=== PATIENT | male | born 1935 | race Caucasian/White ===

== ENCOUNTER 2017-03-31 11:28 | Observation (INO) | payer MEDICARE ==
[~2017-03-31] VITALS: Ht 167.6 cm; Wt 67.0 kg
[~2017-03-31 11:28] MED LIST: AMLO2.5T PO; ASPI81CH CHEW; FISHCAP4 PO; LEVO75TA3 PO; LUMI0.01 EACH EYE; ROSU5 PO; SYSTSOL EACH EYE; TRUS2SOL EACH EYE
[2017-03-31] MEDS ORDERED: METRONIDAZOLE 500 MG/100 ML ISONTONIC SOLN IV ONE (12:00)
[2017-03-31] MEDS ORDERED: INSULIN HUMAN REGULAR 1,000 UNITS/10 ML VIAL SQ PRN (12:00)
[2017-03-31] MEDS ORDERED: METOPROLOL TARTRATE 25 MG TAB PO PRN (12:00)
[2017-03-31] MEDS ORDERED: POVIDONE IODINE 5% (ANTISEPSIS KIT) 4 APPLICATIONS EACH NARE PRN (12:00)
[2017-03-31] MEDS ORDERED: CHLORHEXIDINE GLUCONATE 2 % 1 PACK (2 CLOTHS) TOPICAL PRN (12:00)
[2017-03-31] MEDS ORDERED: LACTATED RINGER'S 1000 ML IV PRN (12:00)
[2017-03-31] MEDS ORDERED: ceFAZolin 2 GM PREMIX 50 ML IV SCH (12:00)
[2017-03-31] MEDS ORDERED: SODIUM CHLORID 0.9% 500 ML IV PRN (12:00)
[2017-03-31] MEDS ORDERED: LATA0.002 EACH EYE (12:17)
[2017-03-31 12:20] VITALS: BP 105/55; PULSE 50; RESP 16; TEMP 97.8; O2SAT 99
[2017-03-31] MEDS ORDERED: BUPIVACAINE/EPINEPHRINE 0.25% PF 10 ML VIAL ONE (12:25)
[2017-03-31] MEDS ORDERED: PROPOFOL 200 MG/20 ML AMP IV ONE (12:49)
[2017-03-31] MEDS ORDERED: ePHEDrine/NS 25 MG/5 ML SYR IV ONE (12:50)
[2017-03-31] MEDS ORDERED: NEOSTIGMINE 3 MG/3 ML SYR IV ONE (12:50)
[2017-03-31] MEDS ORDERED: ONDANSETRON HCL 4 MG/2 ML VIAL IV PUSH ONE (12:50)
[2017-03-31] MEDS ORDERED: DICLOFENAC SODIUM 37.5 MG/ML VIAL IV PUSH ONE (14:50)
[2017-03-31] MEDS ORDERED: diphenhydrAMINE HCL 25 MG CAP PO PRN (15:00)
[2017-03-31] MEDS ORDERED: NALOXONE HCL 0.4 MG/ML AMP IV PRN (15:00)
[2017-03-31] MEDS ORDERED: ONDANSETRON HCL 4 MG/2 ML VIAL IV PRN (15:00)
[2017-03-31] MEDS ORDERED: SODIUM CHLORIDE 0.9% FLUSH 5 ML FLUSH IVF PRN (15:00)
[2017-03-31] MEDS ORDERED: ACETAMINOPHEN/HYDROcodone 325 MG/5 MG TAB PO PRN (15:00)
[2017-03-31] MEDS ORDERED: HYDROmorphone HCL PF 1 MG/ML VIAL IV PRN (15:00)
[2017-03-31] MEDS ORDERED: NON-FORMULARY DRUG (Polyethylene Glycol-Propylene Glycol Opth Drp (Systane Opth Drops) 0 D EACH EYE PRN (15:00)
[2017-03-31] MEDS ORDERED: Post-op Orders (for Pharmacy) MISC XX ONE (15:00)
[2017-03-31] MEDS ORDERED: MORPHINE SULFATE 4 MG/ML INJ IV PUSH PRN (15:00)
--- NOTE | 2017-03-31 15:02 | HHI.PR ---
Immediate Post Op Note Procedure Date: Mar 31, 2017 Pre Op Diagnosis: acute cholecystitis Post Op Diagnosis: same Surgeon: Simon Farooq Conditioning Room Worker(s): cedric lawton Procedure: lap sujata Complications: none Specimen(s) removed: gallbladder Estimated blood loss: minimal Anesthesia: General Drains: None IVF Patient to: PACU Patient Condition: Good Simon Farooq MD Mar 31, 2017 15:02
[2017-03-31] MEDS ORDERED: ARTIFICIAL TEARS OPTH SOLN 15 ML BTL EACH EYE PRN ×2 (15:15→15:22)
[2017-03-31] MEDS ORDERED: PILL SPLITTER OTHER PRN (15:15)
[2017-03-31] MEDS ORDERED: fentaNYL CITRATE 250 MCG/5 ML AMP ONE (15:15)
[2017-03-31] MEDS: SODIUM CHLOR 0.9% 1000 ML INJ 1,000 ML IV SCH (15:25)
[2017-03-31] MEDS ORDERED: *morphine SULFATE 8 MG/ML PERIprocedure ONLY ONE ×2 (15:41→15:59)
[2017-03-31 16:00] VITALS: BP 133/61; PULSE 57; RESP 17; TEMP 96.5; O2SAT 96
[2017-03-31] MEDS ORDERED: DO NOT ADM ANY ANTICOAGULANT DRUGS PRN (16:00)
[2017-03-31] MEDS: ACETAMINOPHEN/HYDROcodone 325 MG/5 MG TAB PO PRN (17:31)
[2017-03-31] MEDS: DORZOLAMIDE 2% OPTH SOLN 200 DROP/10 ML BTLO EACH EYE SCH (18:25)
[2017-03-31] MEDS: SODIUM CHLORIDE 0.9% FLUSH 5 ML FLUSH IVF SCH (19:54)
[2017-03-31 20:00] VITALS: BP 127/63; PULSE 57; RESP 18; TEMP 96.2; O2SAT 96
[2017-03-31] MEDS ORDERED: NON-FORMULARY DRUG (Bimatoprost Opth Drops (Lumigan Opth Drops) 1 DROP) EACH EYE SCH (21:00)
[2017-03-31] MEDS ORDERED: NON-FORMULARY DRUG (Rosuvastatin (Crestor) 5 MG) PO SCH (21:00)
[2017-03-31] MEDS ORDERED: amLODIPine BESYLATE 5 MG TAB PO SCH (21:00)
[2017-03-31] MEDS ORDERED: ATORVASTATIN 10 MG TAB PO SCH (21:00)
[2017-03-31] MEDS ORDERED: LATANOPROST 0.005% OPHT SOLN 2.5 ML BTL EACH EYE SCH (21:00)
[2017-04-01] VITALS: BP 151/70; PULSE 62; RESP 18; TEMP 96.2; O2SAT 96
[2017-04-01] MEDS: ACETAMINOPHEN/HYDROcodone 325 MG/5 MG TAB PO PRN (00:55)
[2017-04-01] MEDS: SODIUM CHLOR 0.9% 1000 ML INJ 1,000 ML IV SCH (00:59)
[2017-04-01 04:00] VITALS: BP 158/69; PULSE 67; RESP 18; TEMP 96.1; O2SAT 97
[2017-04-01] MEDS ORDERED: LEVOTHYROXINE SODIUM 75 MCG TAB PO SCH (06:00)
[2017-04-01 08:00] VITALS: BP 135/60; PULSE 62; RESP 20; TEMP 95.6; O2SAT 97
[2017-04-01] MEDS ORDERED: NON-FORMULARY DRUG (Fish Oil-Cholecalciferol (Fish Oil + D3) 1 CAP) PO SCH (09:00)
[2017-04-01] MEDS ORDERED: ASPIRIN 81 MG CHEW TAB CHEW SCH (09:00)
[2017-04-01] MEDS: SODIUM CHLORIDE 0.9% FLUSH 5 ML FLUSH IVF SCH (09:00)
[2017-04-01] MEDS: DORZOLAMIDE 2% OPTH SOLN 200 DROP/10 ML BTLO EACH EYE SCH (09:22)
--- NOTE | 2017-04-01 11:12 | MP ---
cc: RE GUZMÁN M.D. DATE OF SURGERY: 03/31/2017 PREOPERATIVE DIAGNOSIS Acute cholecystitis. POSTOPERATIVE DIAGNOSIS Acute cholecystitis. PROCEDURE PERFORMED Laparoscopic cholecystectomy. SURGEON Re Guzmán DIRECTOR ELECTRICAL ENGINEERING Jared Zenaida, MS III ANESTHESIA General endotracheal. COMPLICATIONS None. INDICATION FOR PROCEDURE Mr. Iverson is a very pleasant 82-year-old gentleman who has had about a two-week history of significant right upper quadrant abdominal pain. He went to see Dr. Raulito Griggs who sent him for a CT scan of the abdomen and pelvis which demonstrated acute cholecystitis. He was referred for general surgical evaluation. The patient was seen and evaluated in the office and offered a cholecystectomy. The risks and benefits of open and laparoscopic cholecystectomy was discussed with him and he was agreeable. DETAILS OF PROCEDURE The patient was identified, brought to the operating room and placed supine on the operating table. After adequate general endotracheal anesthesia was achieved the abdomen was prepped and draped in standard surgical fashion. The infraumbilical space was anesthetized with 0.25% Marcaine. An infraumbilical incision was made. Dissection was carried down through the subcutaneous tissue to the midline fascia. The midline fascia was then incised sharply. A finger was then placed in the peritoneal cavity without difficulty. A blunt balloon trocar was inserted and the abdomen was insufflated to 15 mmHg using CO2 gas. Next, three 5 mm trocars were placed across the right upper quadrant after anesthetizing the skin and subcutaneous tissue with 0.25% Marcaine. The gallbladder was identified and noted to be markedly distended and enlarged. The gallbladder was retracted cephalad. The patient had a very large right lobe of the liver requiring a third port which we had to place in order to elevate to see the neck of the gallbladder. Once we did this we were able to clearly see the neck of the gallbladder. The patient had a fairly large cystic duct going right down into the common bile duct. It was easily seen. The patient also was noted to have a large right hepatic artery crossing just behind the cystic duct with a cystic duct branch identified. These were all carefully dissected out and confirmed in two planes. The cystic duct was quite large. We went ahead and put two clips on it proximally and one distally and then cut it. The patient was noted to have a stone lodged in the neck of the gallbladder. We then clipped the cystic artery twice proximally, once distally and divided it. The gallbladder was then dissected back a fair distance. Because the cystic artery was quite large and the clips barely got across it, I elected to place an Endoloop on the cystic duct as well. The cystic duct was encircled with a 2-0 PDS Endoloop and ligated which completely sealed it within the clips. There was never any leakage of bile during the procedure. Once we did this the gallbladder was dissected out of the hepatic fossa using electrocautery Bovie. The gallbladder was placed into an Endopouch bag. The umbilical fascial incision had to be enlarged due to the large size of the gallbladder. This was done with sharp dissection. The gallbladder was then excised and removed. The gallbladder was noted to be very edematous and thickened and contained multiple stones. The clips were in place on the cystic duct stump and there was no evidence of leakage of bile. The gallbladder was sent to pathology for analysis. Next, the abdominal cavity was re-visualized. Several small bleeding points on the liver bed were controlled with electrocautery Bovie. Once we did this no further bleeding was noted. The abdominal cavity was rinsed out and effluent was noted to be clear. Clips were re-inspected on the cystic artery and cystic duct stump and there was no evidence of leakage of bile and no bleeding. Omentum was then placed on the operative site. All ports were removed under direct vision. The umbilical fascia was then closed with interrupted 0 Vicryl. The skin was closed with 4-0 Vicryl. The patient tolerated the procedure well. Estimated blood loss was minimal. The patient was awakened, extubated and brought to Recovery in stable condition. MD ELZA Cid/ELIANA /3:03 PM /10:57 AM
[2017-04-01] MEDS ORDERED: NORC5TAB PO (11:35)
[2017-04-01 12:00] VITALS: BP 128/56; PULSE 66; RESP 20; TEMP 96; O2SAT 98
--- NOTE | 2017-04-01 12:30 | HHI.DS ---
Discharge Summary Admission Date Mar 31, 2017 at 14:56 Discharge Date: Apr 01, 2017 Admitting Diagnosis Brief History 82 year old POD1 lap sujata PE at Discharge Ambulating in room Cardio: RRR Resp: CTAB Abd: soft; lap sites c/d/i; tender at incisions Hospital Course 82 year old male POD1 lap sujata. He is able to tolerate a regular diet. His pain was controlled using oral pain medications. He is being DCed home in stable in condition. He will follow up in the office in about 10-14 days. Pt Condition on Discharge: Good Discharge Disposition: Discharge Home Discharge Instructions DIET: Follow Instructions for: As Tolerated, No Restrictions Activities you can perform: See Additionl Instruction Other Activity Instructions: Okay to shower; pat incisions dry Avoid baths, swimming pools and beach until follow up visit Avoid heavy pulling pushing or lifting Bee Meléndez Apr 01, 2017 12:30
== END 2017-04-01 13:56 | disposition home or self-care (01) ==
LOC: HSDC 11:28 → HSDI 14:56 → N07B 16:56
PROVIDERS: ADMIT Surgery Trauma Surgery; ATTEND Surgery Trauma Surgery
DX: K80.12 Calculus of gallbladder with acute and chronic cholecystitis without obstruction (principal); I10 Essential (primary) hypertension; E78.5 Hyperlipidemia, unspecified; E03.9 Hypothyroidism, unspecified; H40.9 Unspecified glaucoma; J44.9 Chronic obstructive pulmonary disease, unspecified; Z87.891 Personal history of nicotine dependence; Z79.82 Long term (current) use of aspirin; Z85.46 Personal history of malignant neoplasm of prostate; Z88.8 Allergy status to other drugs, medicaments and biological substances; Z95.5 Presence of coronary angioplasty implant and graft; Z92.3 Personal history of irradiation; Z86.79 Personal history of other diseases of the circulatory system
CPT/HCPCS: 47562; 88304; 94150; G0378; J0690; J1130; J2270; J2405; J2710; J3010; J7030; J7120

== ENCOUNTER 2018-05-13 05:43 | Observation (INO) ==
[2018-05-13 05:56] VITALS: TEMP 97.6
[2018-05-13] MEDS ORDERED: Sod Chloride 0.9% Inj 1,000 ML IV.CONT SCH (06:00)
--- NOTE | 2018-05-13 06:00 | ED ---
HPI General Chief Complaint: Chest Pain Stated Complaint: chest pain/left side/dizzy Time Seen by Provider: 05/13/18 05:55 History of Present Illness HPI narrative: 83-year-old male with 2 hours of chest pain dizziness headache and referred pain to the left shoulder. Patient has prior history of CAD with multiple stents VA hypertension and dyslipidemia. No history of diabetes or tobaccoism. Patient rates pain as moderate to severe. Patient did take 181 mg aspirin prior to arrival to the. Patient takes isosorbide and has access to sublingual nitroglycerin but did not take either of these medications prior to arrival to the emergency department. Patient denies any mid scapular pain shortness of breath sweats or abdominal pain. Patient does except have some mild nausea. Patient is unable to identify exacerbating or alleviating factors. Patient's manager operational is Dr. Moss; last visit 2 months ago; last stress test 1 year ago. Complete Quality Measures for STEMI Alert Patients Related Data Home Medications Medication Instructions Recorded Confirmed amlodipine 2.5 mg PO DAILY 05/13/18 05/13/18 aspirin [Aspir-81] 81 mg PO DAILY 05/13/18 05/13/18 brimonidine 1 drp OPHTHALMIC (EYE) TID 05/13/18 05/13/18 dorzolamide-timolol 1 drp OPHTHALMIC (EYE) BID 05/13/18 05/13/18 isosorbide mononitrate 120 mg PO DAILY 05/13/18 05/13/18 latanoprost 1 drp OPHTHALMIC (EYE) QPM 05/13/18 05/13/18 levothyroxine 75 mcg PO DAILY 05/13/18 05/13/18 omega-3 fatty acids-fish oil [Fish 500 mg PO DAILY 05/13/18 05/13/18 Oil Extra Strength] peg 400-propylene glycol [Systane 1 drp OPHTHALMIC (EYE) BID 05/13/18 05/13/18 Ultra] rosuvastatin [Crestor] 5 mg PO DAILY 05/13/18 05/13/18 Allergies Allergy/AdvReac Type Severity Reaction Status Date / Time gabapentin AdvReac Unknown Dizziness Verified 05/13/18 05:50 Review of Systems Except as stated in HPI: all other systems reviewed are negative PMFSH History History Provided By: Patient, Friend and Medical Record Medical History Medical History History of high cholesterol (Acute) Hx of coronary artery disease (Acute) Hx of essential hypertension (Acute) Hx of thyroid disease (Acute) Surgical History Surgical History Hx of cholecystectomy (Acute) Hx of hernia repair (Acute) Hx of tonsillectomy (Acute) Social History Social History Substance History: No History of Abuse Second Hand Smoke Exposure: No Smoking Status: Never smoker How Often Do You Have a Drink Containing Alcohol: Monthly or less Recent Travel in [facility] within the Last 8 Weeks: No Recent Out of Country Travel within the Last 8 Weeks: No Exam Narrative Exam Narrative: GENERAL: Well-nourished, well-developed patient. SKIN: Focused skin assessment warm/dry. HEAD: Normocephalic. EYES: No scleral icterus. No injection or drainage. NECK: Supple, trachea midline. No JVD or lymphadenopathy. CARDIOVASCULAR: Regular rate and rhythm without murmurs, gallops, or rubs. Bilateral radial and bilateral dorsalis pedis pulses 2+ to palpation. RESPIRATORY: Breath sounds equal bilaterally. No accessory muscle use. GASTROINTESTINAL: Abdomen soft, non-tender, nondistended. MUSCULOSKELETAL: No cyanosis, or edema. BACK: Nontender without obvious deformity. No CVA tenderness. Course Initial Documented Vital Signs Temperature 97.6 F 05/13/18 05:50 Pulse Rate 66 05/13/18 05:50 Respiratory Rate 18 05/13/18 05:50 Blood Pressure 193/74 H 05/13/18 05:50 Pulse Oximetry 99 05/13/18 05:50 Last Documented Vital Signs Temperature 97.6 F 05/13/18 06:00 Pulse Rate 52 L 05/13/18 07:16 Respiratory Rate 18 05/13/18 07:16 Blood Pressure 112/55 L 05/13/18 07:16 Pulse Oximetry 97 05/13/18 07:16 Medical Decision Making MDM Narrative Medical decision making narrative: 83-year-old male presents with chest pain with known history of CAD and hypertension EKG is sinus rhythm with no acute ST elevation or injury pattern or ectopy noted; patient administered aspirin 162 mg to be taken by mouth chewed sublingual nitroglycerin 0.4 mg to be administered every 5 minutes as needed for chest pain and to hold for blood pressure less than or equal to 100/60 mmHg; patient administered Zofran 4 mg IV. Will also obtain CT brain noncontrast discussed with [facility] for [facility] admission; discussed with Dr Weeks Differential Diagnosis Differential Diagnosis: Chest pain, ACS, VA, dissection, TIA, CVA, uncontrolled hypertension Medical Records Medical records reviewed: Yes I reviewed the patient's medical records. Lab Data Result diagrams: 05/13/18 05:50 05/13/18 05:50 Lab Results 05/13/18 05/13/18 05/13/18 Range/Units 05:50 05:50 05:50 CBC w Diff Auto diff final WBC 6.1 (4.0-11.0) th/mm3 RBC 4.33 L (4.50-5.90) mil/mm3 Hgb 14.1 (13.0-17.0) gm/dL Hct 42.6 (39.0-51.0) % MCV 98.4 (80.0-100.0) fL MCH 32.6 (27.0-34.0) pg MCHC 33.1 (32.0-36.0) % RDW 12.6 (11.6-17.2) % Plt Count 187 (150-450) th/mm3 MPV 9.0 (7.0-11.0) fL Neut % (Auto) 52.3 (16.0-70.0) % Lymph % (Auto) 34.4 (9.0-44.0) % Smyth % (Auto) 8.2 H (0.0-8.0) % Eos % (Auto) 3.9 (0.0-4.0) % Baso % (Auto) 1.2 (0.0-2.0) % Neut # (Auto) 3.2 (1.8-7.7) th/mm3 Lymph # (Auto) 2.1 (1.0-4.8) th/mm3 Smyth # (Auto) 0.5 (0.0-0.9) th/mm3 Eos # (Auto) 0.2 (0.0-0.4) th/mm3 Baso # (Auto) 0.1 (0.0-0.2) th/mm3 WBC Differential . Differential Comment . PT 10.5 (9.8-11.6) sec INR 1.0 Ratio APTT 24.5 (24.3-30.1) sec Sodium 136 (136-145) meq/L Potassium 4.3 (3.5-5.1) meq/L Chloride 105 (98-107) meq/L Carbon Dioxide 22.3 (21.0-32.0) meq/L Anion Gap 9 (5-15) meq/L BUN 22 H (7-18) mg/dL Creatinine 0.97 (0.60-1.30) mg/dL Estimated GFR 74 L (>89) mL/min POC Glucose (68-110) mg/dl Random Glucose 144 H (74-106) mg/dL Calcium 9.1 (8.5-10.1) mg/dL Magnesium (1.5-2.5) mg/dL Total Creatine Kinase 61 (39-308) U/L Troponin I Less than 0.02 L (0.02-0.05) ng/mL B-Natriuretic Peptide (0-100) pg/mL 05/13/18 05/13/18 05/13/18 Range/Units 05:50 05:50 06:11 CBC w Diff WBC (4.0-11.0) th/mm3 RBC (4.50-5.90) mil/mm3 Hgb (13.0-17.0) gm/dL Hct (39.0-51.0) % MCV (80.0-100.0) fL MCH (27.0-34.0) pg MCHC (32.0-36.0) % RDW (11.6-17.2) % Plt Count (150-450) th/mm3 MPV (7.0-11.0) fL Neut % (Auto) (16.0-70.0) % Lymph % (Auto) (9.0-44.0) % Smyth % (Auto) (0.0-8.0) % Eos % (Auto) (0.0-4.0) % Baso % (Auto) (0.0-2.0) % Neut # (Auto) (1.8-7.7) th/mm3 Lymph # (Auto) (1.0-4.8) th/mm3 Smyth # (Auto) (0.0-0.9) th/mm3 Eos # (Auto) (0.0-0.4) th/mm3 Baso # (Auto) (0.0-0.2) th/mm3 WBC Differential Differential Comment PT (9.8-11.6) sec INR Ratio APTT (24.3-30.1) sec Sodium (136-145) meq/L Potassium (3.5-5.1) meq/L Chloride (98-107) meq/L Carbon Dioxide (21.0-32.0) meq/L Anion Gap (5-15) meq/L BUN (7-18) mg/dL Creatinine (0.60-1.30) mg/dL Estimated GFR (>89) mL/min POC Glucose 123 H (68-110) mg/dl Random Glucose (74-106) mg/dL Calcium (8.5-10.1) mg/dL Magnesium 2.2 (1.5-2.5) mg/dL Total Creatine Kinase (39-308) U/L Troponin I (0.02-0.05) ng/mL B-Natriuretic Peptide 100 (0-100) pg/mL Imaging Data Radiologist's impression: Chest X-Ray 05/13/18 05:55 CONCLUSION: Mild cardiomegaly with no acute cardiopulmonary disease. ECG Data EKG Prior to Arrival: No Attestation: I personally reviewed and interpreted this ECG as follows: Prior ECG tracings: available for review Interpretation: EKG: Normal sinus rhythm rate [address] elevation injury pattern or ectopy noted Discharge Plan Discharge Disposition Patient Disposition: 30 Still Patient Discharge Condition Condition: Stable Discharge Details Diagnosis: Chest pain Physicians Team ED Provider: Lindsey Friedman Primary Care Provider: Bryan Blue Rxs /Orders / Referrals /Forms Prescriptions: No Action isosorbide mononitrate 120 mg Tablet Extended Release 24 Hr 120 mg PO DAILY RF: 0 levothyroxine 75 mcg Tablet 75 mcg PO DAILY RF: 0 rosuvastatin [Crestor] 5 mg Tablet 5 mg PO DAILY RF: 0 omega-3 fatty acids-fish oil [Fish Oil Extra Strength] 435-880 mg Capsule 500 mg PO DAILY RF: 0 latanoprost 0.005 % Drops 1 drp OPHTHALMIC (EYE) QPM RF: 0 aspirin [Aspir-81] 81 mg Tablet,Delayed Release (Dr/Ec) 81 mg PO DAILY RF: 0 dorzolamide-timolol 22.3-6.8 mg/mL Drops 1 drp OPHTHALMIC (EYE) BID RF: 0 brimonidine 0.15 % Drops 1 drp OPHTHALMIC (EYE) TID RF: 0 peg 400-propylene glycol [Systane Ultra] 0.4-0.3 % Drops 1 drp OPHTHALMIC (EYE) BID RF: 0 amlodipine 2.5 mg Tablet 2.5 mg PO DAILY RF: 0 Discharge Instructions Patient Printed Instructions: Chest Pain (ED) Status ED Status: With Doctor
[2018-05-13 06:09] LABS: Baso # (Auto) 0.1 th/mm3 (0.0-0.2); Baso % (Auto) 1.2 % (0.0-2.0); Eos # (Auto) 0.2 th/mm3 (0.0-0.4); Eos % (Auto) 3.9 % (0.0-4.0); Hematocrit 42.6 % (39.0-51.0); Hemoglobin 14.1 gm/dL (13.0-17.0); Lymph # (Auto) 2.1 th/mm3 (1.0-4.8); Lymph % (Auto) 34.4 % (9.0-44.0); Mean Corpuscular HGB Conc 33.1 % (32.0-36.0); Mean Corpuscular Hemoglobin 32.6 pg (27.0-34.0); Mean Corpuscular Volume 98.4 fL (80.0-100.0); Mono # (Auto) 0.5 th/mm3 (0.0-0.9); Mono % (Auto) 8.2 % (0.0-8.0); Neut # (Auto) 3.2 th/mm3 (1.8-7.7); Neut % (Auto) 52.3 % (16.0-70.0); Platelet Count 187 th/mm3 (150-450); Red Blood Count 4.33 mil/mm3 (4.50-5.90); Red Cell Distribution Width 12.6 % (11.6-17.2); White Blood Count 6.1 th/mm3 (4.0-11.0)
[2018-05-13 06:20] LABS: Chloride 105 meq/L (98-107); Potassium 4.3 meq/L (3.5-5.1); Sodium 136 meq/L (136-145)
[2018-05-13 06:23] LABS: Anion Gap 9 meq/L (5-15); Calcium 9.1 mg/dL (8.5-10.1); Carbon Dioxide 22.3 meq/L (21.0-32.0); Glucose,Random 144 mg/dL (74-106)
[2018-05-13 06:24] LABS: Blood Urea Nitrogen 22 mg/dL (7-18)
[2018-05-13 06:27] LABS: Glomerular Filtration Rate 74 mL/min (>89)
--- NOTE | 2018-05-13 06:29 | XR ---
EXAM DATE: 05/13/2018 6:24 AM EDT AGE/SEX: 83 years / Male INDICATIONS: Complains of left sided chest pain and dizziness. CLINICAL DATA: This is the patient's initial encounter. Patient reports that signs and symptoms have been present for 2 days and indicates a pain score of 4/10. MEDICAL/SURGICAL HISTORY: None. None. COMPARISON: [facility], CHEST SINGLE AP, 02/21/2013. . FINDINGS: A single AP view of the chest demonstrates the lungs to be symmetrically aerated without evidence of mass, infiltrate or effusion. The heart size remains mildly prominent with no perihilar edema. Ather osclerotic changes are again noted in the aorta. Osseous structures are intact. CONCLUSION: Mild cardiomegaly with no acute cardiopulmonary disease. Electronically signed by: Josesito Zarate MD 05/13/2018 6:28 AM EDT
[2018-05-13 06:49] LABS: Activated Partial Thrombo Time 24.5 sec (24.3-30.1); Prothrombin Time 10.5 sec (9.8-11.6)
[2018-05-13 07:03] LABS: Creatine Kinase 61 U/L (39-308)
[2018-05-13] MEDS ORDERED: Sodium Chlor 0.9% Inj 300 ML IV.SIG ONE (07:07)
[2018-05-13] MEDS ORDERED: Acetaminophen 325 MG Tablet PO ONE (07:08)
[2018-05-13] MEDS ORDERED: Aspirin 325 MG Tablet PO SCH (09:00)
[2018-05-13 09:28] LABS: Creatine Kinase 51 U/L (39-308)
[2018-05-13 10:12] VITALS: BP 135/65; PULSE 54; RESP 18; O2SAT 99
--- NOTE | 2018-05-13 10:52 | P.HP ---
History of Present Illness Primary Care Physician: Bryan Blue MD Chief Complaint: Chest pain History of Present Illness: 83-year-old with known history of hypertension, hyperlipidemia, coronary disease , hypothyroidism, history of prostate cancer, recurrent headache who presented to the hospital for evaluation of chest pain. Patient states that his normal state of health until he went to go to bed last evening when he had some mild dizziness. When he woke up this morning he was having left-sided chest pain that radiated to his left arm which he described as 7/10 on a pain scale. Because of that reason he came to emergency department for evaluation. Patient states that the pain never completely resolved it is now down to a 3/10 on a pain scale. It is reproducible on palpation. Patient has some nausea but no vomiting. Denies any shortness of breath, dyspnea, diaphoresis. Patient does follow with Dr. Encinas, I contacted patient's health companion who indicated that the patient has chronic recurrent chest discomfort which is usually noncardiac. He has done extensive workout without any acute etiology to support his chest pain. He recommended that if the patient ruled out with at least 2 sets of cardiac enzymes the patient can be discharged home and follow-up in his office on Thursday. I notified patient of my discussion with the health companion in he was happy to hear that, however now he states that he is too dizzy to ambulate and does not want to leave until we get that evaluated. Patient states that it is a dizziness that disrupts his equilibrium. There is no nausea or vomiting associated with it. He has had this type of symptom before and usually associated with his chronic intermittent cephalgia. There is no indication of any paresthesia, paralysis, unilateral weakness, dysphagia, slurred speech - Diagnosis (1) Dizziness (2) Chest pain PMF - History History Provided By: Patient, Friend, Medical Record - Medical History Medical History: Medical History (Last Updated 05/13/18 @ 10:45 by MICHAEL Sow) Anxiety Cephalgia History of high cholesterol History of prostate cancer Hx of coronary artery disease Hx of essential hypertension Hx of thyroid disease - Surgical History Surgical History: Surgical History (Last Updated 05/13/18 @ 10:45 by MICHAEL Sow) History of heart artery stent History of mandibular surgery Hx of cardiac catheterization Hx of cholecystectomy Hx of hernia repair Hx of tonsillectomy - Family History Family History: Family History (Last Updated 05/13/18 @ 10:46 by MICHAEL Sow) Other Family history of diabetes mellitus Family history of heart disease - Tobacco History Second Hand Smoke Exposure: No Tobacco Use In Past 30 Days: No Smoking Status: Never smoker - Alcohol History How Often Do You Have a Drink Containing Alcohol: Monthly or less - Substance Use History Substance History: No History of Abuse - Travel History Recent Travel in the [place] Within the Last 8 Weeks: No Recent Travel Out of the Country Within the Last 8 Weeks: No - Immunization History Tetanus Immunization: Unsure Hx Influenza Vaccine This Season: No Medications and Allergies Active Medications: Active Medications Aspirin (Aspirin) 325 mg PO DAILY [facility] Last Admin: 05/13/18 08:55 Dose: 325 mg Sodium Chloride (Ns Inj) 1,000 mls @ 84 mls/hr IV.CONT .[id number] [facility] Last Admin: 05/13/18 06:12 Dose: 84 mls/hr Nitroglycerin (Nitrostat Sl) 0.4 mg SL Q5M PRN PRN Reason: CHEST PAIN Sodium Chloride (Ns Flush) 2 ml IV.FLUSH UNSCH PRN PRN Reason: FLUSH AFTER USING IV ACCESS Sodium Chloride (Ns Flush) 2 ml IV.FLUSH PRN PRN PRN Reason: FLUSH AFTER USING IV ACCESS Sodium Chloride (Ns Flush) 2 ml IV.FLUSH BID [facility] Last Admin: 05/13/18 08:55 Dose: 2 ml Allergies Allergy/AdvReac Type Severity Reaction Status Date / Time gabapentin AdvReac Unknown Dizziness Verified 05/13/18 05:50 Home Medications Medication Instructions Recorded Confirmed Type amlodipine 2.5 mg PO DAILY 05/13/18 05/13/18 History aspirin [Aspir-81] 81 mg PO DAILY 05/13/18 05/13/18 History brimonidine 1 drp OPHTHALMIC (EYE) TID 05/13/18 05/13/18 History dorzolamide-timolol 1 drp OPHTHALMIC (EYE) BID 05/13/18 05/13/18 History isosorbide mononitrate 120 mg PO DAILY 05/13/18 05/13/18 History latanoprost 1 drp OPHTHALMIC (EYE) QPM 05/13/18 05/13/18 History levothyroxine 75 mcg PO DAILY 05/13/18 05/13/18 History omega-3 fatty acids-fish oil [Fish 500 mg PO DAILY 05/13/18 05/13/18 History Oil Extra Strength] peg 400-propylene glycol [Systane 1 drp OPHTHALMIC (EYE) BID 05/13/18 05/13/18 History Ultra] rosuvastatin [Crestor] 5 mg PO DAILY 05/13/18 05/13/18 History Exam Vital signs: Vital Signs 05/13/18 05:50 05/13/18 06:00 05/13/18 06:04 Temperature 97.6 F 97.6 F Pulse Rate 66 66 Respiratory Rate 18 18 Blood Pressure 193/74 H 193/74 H Blood Pressure [Left Arm] 172/67 H Blood Pressure [Right Arm] 193/74 H Pulse Oximetry 99 99 05/13/18 06:31 05/13/18 06:47 05/13/18 07:10 Temperature Pulse Rate 60 56 L Respiratory Rate 18 18 16 Blood Pressure 143/67 H 141/66 H Blood Pressure [Left Arm] Blood Pressure [Right Arm] Pulse Oximetry 98 97 05/13/18 07:16 05/13/18 08:52 05/13/18 08:53 Temperature Pulse Rate 52 L 69 69 Respiratory Rate 18 17 Blood Pressure 112/55 L 139/57 L Blood Pressure [Left Arm] Blood Pressure [Right Arm] Pulse Oximetry 97 100 05/13/18 09:25 Temperature Pulse Rate 54 L Respiratory Rate 18 Blood Pressure 135/65 Blood Pressure [Left Arm] Blood Pressure [Right Arm] Pulse Oximetry 99 Intake & Output 05/12/18 05/13/18 05/13/18 18:59 06:59 18:59 Intake Total 300 / 300 Output Total 1650 / 1650 Balance -1350 / -1350 Weight 68.7 kg Intake: IV 300 / 300 NS Inj 300 ML @ Wide Open IV. 300 / 300 SIG BOLUS ONE Rx#:[id number] Output: Urine 1650 / 1650 Narrative: GENERAL: Well-developed, well-nourished, in no acute distress. alert and orientated HEENT: Head is normocephalic without any lesions or masses noted. Facial features are symmetric. Eyes: Pupils equal round reactive to light. Extraocular muscles are intact. Conjunctivae were clear. Oropharyngeal: Pharynx without any erythema edema. Tongue is midline without deviation. Buccal mucosa is moist without any masses or lesions NECK: Supple without any masses. Trachea midline no deviation. No JVD, no bruits are appreciated CARDIAC: Regular rhythm, regular rate. S1/S2 are heard. No murmurs gallops or rubs. LUNGS: Clear to auscultation bilaterally. No wheeze, rhonchi or rales. No use of accessory muscles on inspiration or expiration. ABDOMEN: Soft, nontender. Nondistended. Bowel sounds heard in all 4 quadrants. No organomegaly or masses. Negative rebound, negative guarding EXTREMITIES: No edema, pulses are equal bilaterally. No cyanosis or clubbing NEUROLOGY: Mood and affect appear appropriate. Cranial nerves II through XII grossly intact. Muscle strength 5/5 in upper and lower extremities bilaterally. Deep tendon reflexes are 2+ in upper and lower extremities bilaterally. Results - Labs CBC & Chem 7: 05/13/18 05:50 05/13/18 05:50 Labs: Laboratory Results - last 24 hr 05/13/18 05/13/18 05/13/18 05:50 05:50 05:50 CBC w Diff Auto diff final WBC 6.1 RBC 4.33 L Hgb 14.1 Hct 42.6 MCV 98.4 MCH 32.6 MCHC 33.1 RDW 12.6 Plt Count 187 MPV 9.0 Neut % (Auto) 52.3 Lymph % (Auto) 34.4 Dickens % (Auto) 8.2 H Eos % (Auto) 3.9 Baso % (Auto) 1.2 Neut # (Auto) 3.2 Lymph # (Auto) 2.1 Dickens # (Auto) 0.5 Eos # (Auto) 0.2 Baso # (Auto) 0.1 WBC Differential . Differential Comment . PT 10.5 INR 1.0 APTT 24.5 Sodium 136 Potassium 4.3 Chloride 105 Carbon Dioxide 22.3 Anion Gap 9 BUN 22 H Creatinine 0.97 Estimated GFR 74 L POC Glucose Random Glucose 144 H Calcium 9.1 Magnesium Total Creatine Kinase 61 Troponin I Less than 0.02 L B-Natriuretic Peptide 05/13/18 05/13/18 05/13/18 05:50 05:50 06:11 CBC w Diff WBC RBC Hgb Hct MCV MCH MCHC RDW Plt Count MPV Neut % (Auto) Lymph % (Auto) Dickens % (Auto) Eos % (Auto) Baso % (Auto) Neut # (Auto) Lymph # (Auto) Dickens # (Auto) Eos # (Auto) Baso # (Auto) WBC Differential Differential Comment PT INR APTT Sodium Potassium Chloride Carbon Dioxide Anion Gap BUN Creatinine Estimated GFR POC Glucose 123 H Random Glucose Calcium Magnesium 2.2 Total Creatine Kinase Troponin I B-Natriuretic Peptide 100 05/13/18 08:52 CBC w Diff WBC RBC Hgb Hct MCV MCH MCHC RDW Plt Count MPV Neut % (Auto) Lymph % (Auto) Dickens % (Auto) Eos % (Auto) Baso % (Auto) Neut # (Auto) Lymph # (Auto) Dickens # (Auto) Eos # (Auto) Baso # (Auto) WBC Differential Differential Comment PT INR APTT Sodium Potassium Chloride Carbon Dioxide Anion Gap BUN Creatinine Estimated GFR POC Glucose Random Glucose Calcium Magnesium Total Creatine Kinase 51 Troponin I Less than 0.02 L B-Natriuretic Peptide - Imaging Impressions Chest X-Ray 05/13/18 05:55 CONCLUSION: Mild cardiomegaly with no acute cardiopulmonary disease. Caprini VTE Risk Assessment Caprini VTE Risk Assessment: Moderate/High Risk (score >= 2) Caprini Risk Assessment Model: Point Value = 1 Point Value = 2 Point Value = 3 Point Value = 5 Age 41-60 Minor surgery BMI > 25 kg/m2 Swollen legs Varicose veins or History of unexplained or recurrent spontaneous Oral contraceptives or hormone replacement Sepsis (< 1 month) Serious lung disease, including pneumonia (< 1 month) Abnormal pulmonary function Acute myocardial infarction Congestive heart failure (< 1 month) History of inflammatory bowel disease Medical patient at bed rest Age 61-74 Arthroscopic surgery Major open surgery (> 45 min) Laparoscopic surgery (> 45 min) Malignancy Confined to bed (> 72 hours) Immobilizing plaster cast Central venous access Age >= 75 History of VTE Family history of VTE Factor V Leiden Prothrombin [id number] Lupus anticoagulant Anticardiolipin antibodies Elevated serum homocysteine Heparin-induced thrombocytopenia Other congenital or acquired thrombophilia Stroke (< 1 month) Elective arthroplasty Hip, pelvis, or leg fracture Acute spinal cord injury (< 1 month) Prophylaxis Regimen: Total Risk Factor Score Risk Level Prophylaxis Regimen 0-1 Low Early ambulation 2 Moderate Order ONE of the following: *Sequential Compression Device (SCD) *Heparin 5000 units SQ BID 3-4 Higher Order ONE of the following medications: *Heparin 5000 units SQ TID *Enoxaparin/Lovenox 40 mg SQ daily (WT < 150 kg, CrCl > 30 mL/min) *Enoxaparin/Lovenox 30 mg SQ daily (WT < 150 kg, CrCl > 10-29 mL/min) *Enoxaparin/Lovenox 30 mg SQ BID (WT < 150 kg, CrCl > 30 mL/min) AND/OR *Sequential Compression Device (SCD) 5 or more Highest Order ONE of the following medications: *Heparin 5000 units SQ TID (Preferred with Epidurals) *Enoxaparin/Lovenox 40 mg SQ daily (WT < 150 kg, CrCl > 30 mL/min) *Enoxaparin/Lovenox 30 mg SQ daily (WT < 150 kg, CrCl > 10-29 mL/min) *Enoxaparin/Lovenox 30 mg SQ BID (WT < 150 kg, CrCl > 30 mL/min) AND *Sequential Compression Device (SCD) Assessment and Plan - Assessment (1) Dizziness Code(s): R42 - Dizziness and giddiness Status: Acute (2) Chest pain Code(s): R07.9 - Chest pain, unspecified Status: Acute - Plan Chest pain, atypical -Patient had increased risk factors include age, male, hypertension, hyperlipidemia, history of coronary disease with stenting -Discussed with patient's health companion Dr. Encinas, who indicated that if patient has been ruled out with 2 sets of enzymes the patient can be discharged home with outpatient follow-up. He indicated that patient has had extensive outpatient cardiac workup in his chest pain is noncardiac. -Patient has been ruled out for acute coronary event with serial cardiac enzymes that have remained negative -Serial EKGs reviewed by myself and shows sinus rhythm without any changes -Patient continued on his home medications Dizziness with associated chronic recurrent headache -Patient has had extensive workup in the past, during hospitalizations for his recurrent headache and dizziness, to include MRI, neurology consult. And patient does follow with outpatient neurologist -CT the brain was negative without any acute abnormality. -Physical therapy evaluation was performed and patient did walk 50 feet 3, contact-guard. Evaluation was positive for positional vertigo. Recommended outpatient vestibular therapy -Patient started on meclizine 25 mg 3 times daily -Patient is a follow-up with his neurologist to arrange outpatient vestibular therapy Hypertension, hyperlipidemia, coronary disease -Home medications have been continued Hypothyroidism -Replacement therapy has been continued DVT prevention -Sequential compression devices Discharge Planning: Discharge home in stable condition Activity: Ad kalyn. Diet: Healthy heart diet Medication per medication reconciliation Follow-up with primary medical doctor in 1 week (2) Chest pain Qualifiers: Chest pain type: precordial pain Qualified Code(s): R07.2 - Precordial pain
[2018-05-13] MEDS ORDERED: Dorzolamide-Timolol 2/0.5% Opth Drops 10 ML Bottle EACH EYE SCH (11:00)
[2018-05-13] MEDS ORDERED: amLODIPine 5 MG Tablet PO SCH (11:15)
[2018-05-13] MEDS ORDERED: Isosorbide Mononitrate 60 MG ER 24HR Tablet (Imdur) PO SCH (11:15)
--- NOTE | 2018-05-13 11:47 | CT ---
EXAM DATE: 05/13/2018 11:44 AM EDT AGE/SEX: 83 years / Male INDICATIONS: Dizziness. Cephalgia. CLINICAL DATA: This is the patient's initial encounter. Patient reports that signs and symptoms have been present for 1 day and indicates a pain score of 5/10. MEDICAL/SURGICAL HISTORY: Myocardial infarction. Carcinoma, prostatic. Diabetes. Coronary artery stent. Cholecystectomy. Hernia repair. RADIATION DOSE: 54.46 CTDI (mGy) COMPARISON: [facility], CT BRAIN W/O CONTRAST, 02/21/2013. . TECHNIQUE: CT of the head without contrast. Using automated exposure control and adjustment of the mA and/or kV according to patient size, radiation dose was kept as low as reasonably achievable to ob tain optimal diagnostic quality images. DICOM format image data is available electronically for revi ew and comparison. FINDINGS: Cerebrum: The ventricles are normal for age. No evidence of midline shift, mass lesion, hemorrhage or acute infarction. No extraaxial fluid collections are seen. Posterior Fossa: The cerebellum and brainstem are intact. The 4th ventricle is midline. The cerebe llopontine angle is unremarkable. Extracranial: The visualized portion of the orbits is intact. Skull: The calvaria is intact. No evidence of skull fracture. CONCLUSION: 1. Unremarkable and stable CT brain compared to 2012. . Electronically signed by: Hernandez Delaney MD 05/13/2018 11:46 AM EDT
[2018-05-13] MEDS ORDERED: Brimonidine 0.15% Opth Drops 5 ML Bottle EACH EYE SCH (13:00)
[2018-05-13 13:17] LABS: Creatine Kinase 51 U/L (39-308)
--- NOTE | 2018-05-13 13:44 | ECG ---
Date Performed: 05/13/2018 Time Performed: 05:52:22 PTAGE: 83 years EKG: Sinus rhythm NORMAL ECG Since the PREVIOUS TRACING , no significant change noted PREVIOUS TRACIN02/22/2013 20.40 DOCTOR: Alexy Whitney Interpretating Date/Time 05/13/2018 13:43:09
--- NOTE | 2018-05-13 13:44 | ECG ---
Date Performed: 05/13/2018 Time Performed: 11:31:34 PTAGE: 83 years EKG: SINUS BRADYCARDIA WITH SINUS ARRHYTHMIA PROLONGED QT INTERVAL ABNORMAL ECG Since the PREVIOUS TRACING , no significant change noted PREVIOUS TRACIN05/13/2018 08.23 DOCTOR: Alexy Whitney Interpretating Date/Time 05/13/2018 13:42:47
--- NOTE | 2018-05-13 13:44 | ECG ---
Date Performed: 05/13/2018 Time Performed: 08:23:58 PTAGE: 83 years EKG: Sinus rhythm NORMAL ECG Since the PREVIOUS TRACING , no significant change noted PREVIOUS TRACIN05/13/2018 05.52 DOCTOR: Alexy Whitney Interpretating Date/Time 05/13/2018 13:42:55
[2018-05-13] MEDS ORDERED: Latanoprost 0.005% Opth Drops 2.5 ML Bottle EACH EYE SCH (18:00)
[2018-05-14] MEDS ORDERED: Levothyroxine 75 MCG Tablet PO SCH (06:00)
== END 2018-05-13 15:56 | disposition home or self-care (01) ==
LOC: PH3 05:43 → PHED 05:43 → PHEDA 05:43 → PH3 10:01
PROVIDERS: ADMIT Hospitalist; ATTEND Hospitalist
DX: R07.9 Chest pain, unspecified; Z95.5 Presence of coronary angioplasty implant and graft; Z83.3 Family history of diabetes mellitus; E03.9 Hypothyroidism, unspecified; R94.31 Abnormal electrocardiogram [ECG] [EKG]; Z90.49 Acquired absence of other specified parts of digestive tract; Z82.49 Family history of ischemic heart disease and other diseases of the circulatory system; R42 Dizziness and giddiness; I10 Essential (primary) hypertension; Z85.46 Personal history of malignant neoplasm of prostate; E78.5 Hyperlipidemia, unspecified; I25.10 Atherosclerotic heart disease of native coronary artery without angina pectoris; E78.00 Pure hypercholesterolemia, unspecified